=== PATIENT | female | born 1985 | race Caucasian/White ===

== ENCOUNTER → 2024-03-23 14:14 | Outpatient (REF) | payer BC, SELFPAY | LOC: RAD 14:14 | PROVIDERS: ATTENDING PHYSICIAN Student in an Organized Health Care Education/Training Program | DX: A69.20 Lyme disease, unspecified (principal); M13.80 Other specified arthritis, unspecified site; M25.50 Pain in unspecified joint; M46.90 Unspecified inflammatory spondylopathy, site unspecified; Z83.79 Family history of other diseases of the digestive system | CPT/HCPCS: 73030 ==

== ENCOUNTER 2024-05-22 13:56 | Outpatient (RCR) | payer BC, SELFPAY | END 2024-05-22 23:59 | disposition home or self-care (01) | LOC: RPT 13:56 | PROVIDERS: ATTENDING PHYSICIAN Obstetrics & Gynecology | DX: R10.2 Pelvic and perineal pain (principal); M62.89 Other specified disorders of muscle; N94.10 Unspecified dyspareunia; Z73.6 Limitation of activities due to disability; M62.81 Muscle weakness (generalized); R27.8 Other lack of coordination | CPT/HCPCS: 97140; 97163; 97530 ==

== ENCOUNTER 2024-06-21 13:55 | Outpatient (RCR) | payer BC, SELFPAY | END 2024-06-21 23:59 | disposition home or self-care (01) | LOC: RPT 13:55 | PROVIDERS: ATTENDING PHYSICIAN Obstetrics & Gynecology | DX: R10.2 Pelvic and perineal pain (principal); M62.89 Other specified disorders of muscle; N94.10 Unspecified dyspareunia; Z73.6 Limitation of activities due to disability; M62.81 Muscle weakness (generalized); R27.8 Other lack of coordination | CPT/HCPCS: 97140; 97530 ==

== ENCOUNTER 2024-07-20 10:04 | Outpatient (RCR) | payer BC, SELFPAY | END 2024-07-20 23:59 | disposition home or self-care (01) | LOC: RPT 10:04 | PROVIDERS: ATTENDING PHYSICIAN Obstetrics & Gynecology | DX: R10.2 Pelvic and perineal pain (principal); M62.89 Other specified disorders of muscle; N94.10 Unspecified dyspareunia; Z73.6 Limitation of activities due to disability; M62.81 Muscle weakness (generalized); R27.8 Other lack of coordination; M25.551 Pain in right hip; M54.50 Low back pain, unspecified | CPT/HCPCS: 97112; 97530 ==

== ENCOUNTER 2024-08-03 08:28 | Outpatient (RCR) | payer BC, SELFPAY | END 2024-08-03 23:59 | disposition home or self-care (01) | LOC: RPT 08:28 | PROVIDERS: ATTENDING PHYSICIAN Obstetrics & Gynecology | DX: R10.2 Pelvic and perineal pain (principal); M62.89 Other specified disorders of muscle; N94.10 Unspecified dyspareunia; Z73.6 Limitation of activities due to disability; M62.81 Muscle weakness (generalized); R27.8 Other lack of coordination | CPT/HCPCS: 97112; 97140; 97530 ==

== ENCOUNTER 2024-08-14 16:03 | Outpatient (RCR) | payer BC, SELFPAY | END 2024-08-14 23:59 | disposition home or self-care (01) | LOC: RPT 16:03 | PROVIDERS: ATTENDING PHYSICIAN Student in an Organized Health Care Education/Training Program | DX: M25.512 Pain in left shoulder (principal); Z73.6 Limitation of activities due to disability | CPT/HCPCS: 97110; 97112; 97140; 97162; 97530 ==

== ENCOUNTER 2024-08-31 09:03 | Outpatient (RCR) | payer BC, SELFPAY | END 2024-08-31 23:59 | disposition home or self-care (01) | LOC: RPT 09:03 | PROVIDERS: ATTENDING PHYSICIAN Obstetrics & Gynecology | DX: R10.2 Pelvic and perineal pain (principal); M62.89 Other specified disorders of muscle; N94.10 Unspecified dyspareunia; Z73.6 Limitation of activities due to disability; M62.81 Muscle weakness (generalized); R27.8 Other lack of coordination | CPT/HCPCS: 97112; 97530 ==

== ENCOUNTER 2024-08-31 10:03 | Outpatient (RCR) | payer BC, SELFPAY | END 2024-08-31 23:59 | disposition home or self-care (01) | LOC: RPT 10:03 | PROVIDERS: ATTENDING PHYSICIAN Student in an Organized Health Care Education/Training Program | DX: M25.512 Pain in left shoulder (principal); Z73.6 Limitation of activities due to disability | CPT/HCPCS: 97010; 97110; 97112; 97140 ==

== ENCOUNTER 2024-10-01 09:03 | Outpatient (RCR) | payer BC, SELFPAY | END 2024-10-05 23:59 | disposition home or self-care (01) | LOC: RPT 09:03 | PROVIDERS: ATTENDING PHYSICIAN Student in an Organized Health Care Education/Training Program | DX: M25.512 Pain in left shoulder (principal); Z73.6 Limitation of activities due to disability | CPT/HCPCS: 97110; 97112; 97530 ==

== ENCOUNTER 2024-10-19 13:03 | Outpatient (RCR) | payer BC, SELFPAY | END 2024-10-19 23:59 | disposition home or self-care (01) | LOC: RPT 13:03 | PROVIDERS: ATTENDING PHYSICIAN Obstetrics & Gynecology | DX: R10.2 Pelvic and perineal pain (principal); M62.89 Other specified disorders of muscle; N94.10 Unspecified dyspareunia; Z73.6 Limitation of activities due to disability; M62.81 Muscle weakness (generalized); R27.8 Other lack of coordination | CPT/HCPCS: 97112; 97140; 97530 ==

== ENCOUNTER → 2025-02-11 11:45 | Outpatient (REF) | payer BC, SELFPAY | LOC: CLAB 11:45 | PROVIDERS: ATTENDING PHYSICIAN Otolaryngology | DX: J34.89 Other specified disorders of nose and nasal sinuses (principal) | CPT/HCPCS: 87070; 87147; 87205 ==

== ENCOUNTER 2025-02-14 06:52 | Outpatient (RCR) | payer BC, SELFPAY | END 2025-02-14 23:59 | disposition home or self-care (01) | LOC: RPT 06:52 | PROVIDERS: ATTENDING PHYSICIAN Obstetrics & Gynecology; FAMILY PHYSICIAN Nurse Practitioner | DX: N81.9 Female genital prolapse, unspecified (principal); Z73.6 Limitation of activities due to disability; M62.81 Muscle weakness (generalized) | CPT/HCPCS: 97110; 97163; 97530 ==

== ENCOUNTER 2025-03-22 08:37 | Outpatient (RCR) | payer BC, SELFPAY | END 2025-03-22 23:59 | disposition home or self-care (01) | LOC: RPT 08:37 | PROVIDERS: ATTENDING PHYSICIAN Obstetrics & Gynecology; FAMILY PHYSICIAN Nurse Practitioner | DX: N81.9 Female genital prolapse, unspecified (principal); Z73.6 Limitation of activities due to disability; M62.81 Muscle weakness (generalized) | CPT/HCPCS: 97530 ==

== ENCOUNTER → 2025-04-01 09:57 | Outpatient (REF) | payer BC, SELFPAY | LOC: RAD 09:57 | PROVIDERS: ATTENDING PHYSICIAN Student in an Organized Health Care Education/Training Program; FAMILY PHYSICIAN Nurse Practitioner | DX: M06.00 Rheumatoid arthritis without rheumatoid factor, unspecified site (principal); M25.461 Effusion, right knee; M25.551 Pain in right hip; M25.562 Pain in left knee; M46.90 Unspecified inflammatory spondylopathy, site unspecified; N81.9 Female genital prolapse, unspecified | CPT/HCPCS: 73523 ==

== ENCOUNTER 2025-04-26 14:04 | Outpatient (RCR) | payer BC, SELFPAY | END 2025-04-26 23:59 | disposition home or self-care (01) | LOC: RPT 14:04 | PROVIDERS: ATTENDING PHYSICIAN Obstetrics & Gynecology; FAMILY PHYSICIAN Nurse Practitioner | DX: N81.9 Female genital prolapse, unspecified (principal); Z73.6 Limitation of activities due to disability; M62.81 Muscle weakness (generalized) | CPT/HCPCS: 97112; 97530 ==

== ENCOUNTER → 2025-05-12 07:32 | Outpatient (REF) | payer BC, SELFPAY | LOC: PAVMRI 07:32 | PROVIDERS: ATTENDING PHYSICIAN Student in an Organized Health Care Education/Training Program; FAMILY PHYSICIAN Nurse Practitioner | DX: M65.15 Other infective (teno)synovitis, hip (principal) | CPT/HCPCS: 73721 ==